=== PATIENT | male | born 1995 | race Caucasian/White ===

== ENCOUNTER 2017-03-17 21:49 | Emergency (ER) | payer OTHER ==
[2017-03-17 22:08] VITALS: BP 145/83; PULSE 81; RESP 16; TEMP 97.9; O2SAT 96
--- NOTE | 2017-03-17 22:36 | EDPHY ---
H & P Stated Complaint: R great toe swelling HPI/ROS: HPI CHIEF COMPLAINT: Right toe pain redness and swelling. HISTORY OF PRESENT ILLNESS: Patient very pleasant 22-year-old male, otherwise healthy no significant medical history nondiabetic, presents emergency room with right great toe pain redness drainage and swelling. This located along the medial aspect of the toe. States over the past 2-3 days it has been getting worse. He thinks he may have a infection. Denies any direct trauma or stepping on anything. Denies fever. Past Medical History: No medical history Past Surgical History: No surgical history Social History: Denies daily use drugs alcohol tobacco products. Family History: Noncontributory. ROS REVIEW OF SYSTEMS: A comprehensive 10 point review of systems is otherwise negative aside from elements mentioned in the history of present illness. Exam Constitutional triage nursing summary reviewed, vital signs reviewed, awake/ alert. Eyes normal conjunctivae and sclera, EOMI, PERRLA. HENT normal inspection, atraumatic, moist mucus membranes, no epistaxis, neck supple/ no meningismus, no raccoon eyes. Respiratory clear to auscultation bilaterally, normal breath sounds, no respiratory distress, no wheezing. Cardiovascular rate normal, regular rhythm, no murmur, no edema, distal pulses normal. Gastrointestinal soft, non-tender, no rebound, no guarding, normal bowel sounds, no distension, no pulsatile mass. Genitourinary no CVA tenderness. Musculoskeletal no midline vertebral tenderness, full range of motion, no calf swelling, no tenderness of extremities, no meningismus, good pulses, neurovascularly intact. Right great toe: Good cap refill. Tender palpation along the medial aspect of the right great toe. I do not appreciate a big abscess or big paronychia that can be drained. It is erythematous and tender. No significant drainage. Skin pink, warm, & dry, no rash, skin atraumatic. Neurologic awake, alert and oriented x 3, AAOx3, moves all 4 extremities equally, motor intact, sensory intact, CN II-XII intact, normal cerebellar, normal vision, normal speech. Psychiatric normal mood/affect. Heme/Lymph/Immune no lymphadenopathy. Differential Diagnosis: Includes but is not limited to in a particular order toenail infection, paronychia, cellulitis, ingrown toenail. Medical Decision Making: Plan for this patient I do recommend that he does warm soaks 3 to 4 times a day for 20 minutes. Open-toe shoe with a sock. Protection. Antibiotics as prescribed. Avery for pain control. Ibuprofen for mild pain. Return if getting worse. He understands. At this time I do not appreciate anything that can be drained. Re-evaluation: Source: Patient - Personal History Current Tetanus/Diphtheria Vaccine: Yes Current Tetanus Diphtheria and Acellular Pertussis (TDAP): Yes - Medical/Surgical History Hx Asthma: No Hx Chronic Respiratory Disease: No Hx Diabetes: No Hx Cardiac Disease: No Hx Renal Disease: No Hx Cirrhosis: No Hx Alcoholism: No Hx HIV/AIDS: No Hx Splenectomy or Spleen Trauma: No Other PMH: 2017 R ankle surgery, depression, - Social History Smoking Status: Never smoked Constitutional: Initial Vital Signs Temperature (C) 36.6 C 03/17/17 22:06 Heart Rate 81 03/17/17 22:06 Respiratory Rate 16 03/17/17 22:06 Blood Pressure 145/83 H 03/17/17 22:06 O2 Sat (%) 96 03/17/17 22:06 O2 Delivery Mode Room Air Allergies/Adverse Reactions: No Known Allergies Allergy (Unverified 03/17/17 22:06) Home Medications: Medication Instructions Recorded Cephalexin [Keflex] 500 mg PO Q6H #28 cap 03/17/17 Hydrocodone/APAP 5/325 [Avery 1 - 2 tab PO Q4H PRN #10 tab 03/17/17 5/325] Ibuprofen [Motrin (*)] 800 mg PO Q6-8PRN #10 tab 03/17/17 Departure - Departure Disposition: Home, Routine, Self-Care Clinical Impression: Toe infection Condition: Good Instructions: Paronychia (ED) Additional Instructions: 1. Warm soaks 2 to 3 times a day for 20 minutes. 2. Ibuprofen for mild pain. 3. Avery for severe pain. 4. Antibiotics as prescribed. 5. Return emergency room if there is worsening symptoms questions or concerns includes worsening pain, redness, swelling. 6. Follow up with Podiatry as needed. Referrals: MARANDA BAR [Other] - As per Instructions Fransico Olmstead DPM [Doctor of Podiatric Medicine] - As per Instructions Prescriptions: Cephalexin [Keflex] 500 mg PO Q6H #28 cap Hydrocodone/APAP 5/325 [Avery 5/325] 1 - 2 tab PO Q4H PRN #10 tab PRN Reason: Pain, Moderate Ibuprofen [Motrin (*)] 800 mg PO Q6-8PRN #10 tab
[2017-03-17] MEDS ORDERED: HYDROCODONE/APAP 5/325 TAB PO ONE (22:54)
[2017-03-17] MEDS ORDERED: CEPHALEXIN 500MG PREPACK#4 BTL TAKEHOME ONE ×2 (22:54→23:19)
[2017-03-17] MEDS ORDERED: CEPHALEXIN 500 MG CAP PO ONE (22:54)
[2017-03-17] MEDS ORDERED: HYDROCOD/APAP 5/325 PREPACK#6 BTL TAKEHOME ONE (22:54)
== END 2017-03-17 23:27 | disposition home or self-care (01) ==
DX: L08.9 Local infection of the skin and subcutaneous tissue, unspecified (principal)